=== PATIENT | female | born 1970 | race Caucasian/White ===

== ENCOUNTER → 2020-01-04 | Outpatient (CLI) | payer SELFPAY ==
[~2020-01-04] MED LIST: CATHETER FLUSH 10 ML SYR IV PRN; HOLD METFORMIN - RECEIVED CONTRAST 20 ML VIAL IV SCH; IOHEXOL 350 MG/ML 100 ML (OMNIPAQUE 350) VIAL IV ONE; NS 100 ML (IVPB) BAG IV ONE
[2020-01-04 09:58] LABS: ALANINE AMINOTRANSFERASE 16 U/L (0-55); ALBUMIN 4.2 GM/DL (3.2-4.5); ALKALINE PHOSPHATASE 100 U/L (40-136); BILIRUBIN,TOTAL 0.2 MG/DL (0.1-1.0); BUN/CREATININE RATIO 11; CALCIUM 9.4 MG/DL (8.5-10.1); CARBON DIOXIDE 23 MMOL/L (21-32); CHLORIDE 101 MMOL/L (98-107); CREATININE SERUM 0.88 MG/DL (0.60-1.30); GFR ESTIMATED > 60; GLUCOSE 111 MG/DL (70-105); POTASSIUM 4.4 MMOL/L (3.6-5.0); SODIUM 138 MMOL/L (135-145); TOTAL PROTEIN 7.3 GM/DL (6.4-8.2)
--- NOTE | 2020-01-04 10:48 | Diagnostic Imaging Report ---
PROCEDURE: CT abdomen and pelvis with contrast. TECHNIQUE: Multiple contiguous axial images were obtained through the abdomen and pelvis after administration of intravenous contrast. Auto Exposure Controls were utilized during the CT exam to meet ALARA standards for radiation dose reduction. INDICATION: Left-sided abdominal pain for one year increasing in severity. COMPARISON: No prior studies are available for comparison. FINDINGS: Lung bases are clear. The liver demonstrates generalized low density consistent with hepatic steatosis. No discrete liver mass is detected. Gallbladder is surgically absent. No biliary ductal dilatation is identified. The pancreas and spleen are unremarkable. No adrenal mass is identified. The kidneys are unremarkable. Aorta is non-aneurysmal. The bowel loops are normal caliber. There is no obstruction. There is some questionable mild wall thickening involving the descending and sigmoid colon versus incomplete distention. No free fluid or fluid collection is identified. The bladder and uterus are unremarkable. No definite abdominal or pelvic lymphadenopathy is identified. IMPRESSION: 1. Hepatic steatosis. 2. Questionable wall thickening of the descending and sigmoid colon which can be seen with nonspecific inflammatory/infectious colitis. No other significant abnormality is seen. Dictated by: Dictated on workstation # [id number]
== END ==
LOC: RAD FS 09:22
PROVIDERS: ATTEND Clinical Nurse Specialist Emergency
DX: R10.9 Unspecified abdominal pain (principal)
CPT/HCPCS: 36415; 74177; 80053